=== PATIENT | male | born 1940 | race Caucasian/White ===

== ENCOUNTER 2017-05-10 08:18 | Emergency (ER) | payer MEDICARE ==
[2017-05-10] MEDS ORDERED: Iopamidol 370 76% 100 ML VIAL ONE (09:00)
[2017-05-10 09:05] LABS: Mean Corpuscular HGB CONC 33.2 g/dL (32.0-36.0); Mean Corpuscular Hemoglobin 31.8 pg (27.0-31.0); Mean Corpuscular Volume 95.9 fl (80.0-94.0); Mean Platelet Volume 6.8 fL (7.4-10.4); Platelet Count 205 thou/uL (130-400); RBC Distribution Width 19.1 % (11.5-14.5); Red Blood Cell (RBC) Count 3.46 mill/uL (4.70-6.10); White Blood Cell (WBC) Count 5.9 thou/uL (4.8-10.8)
[2017-05-10 09:11] LABS: ALT (SGPT) 19 U/L (8-55); AST (SGOT) 22 U/L (5-34); Albumin 3.5 g/dL (3.4-4.8); Alkaline Phosphatase 67 U/L (40-150); Anion Gap 12 mmol/L (10-20); BUN (Urea Nitrogen) 17 mg/dL (8.4-25.7); Bilirubin, Total 1.2 mg/dL (0.2-1.2); Calc. Creatinine Clearance 0 mL/min (70-130); Calcium 9.1 mg/dL (7.8-10.44); Carbon Dioxide 28 mmol/L (23-31); Chloride 105 mmol/L (98-107); Estimated GFR-MDRD Greater than 90; Globulin 2.7 g/dL (2.4-3.5); Glucose 127 mg/dL (83-110); Potassium 4.3 mmol/L (3.5-5.1); Protein, Total 6.2 g/dL (5.8-8.1); Sodium 141 mmol/L (136-145)
[2017-05-10 09:13] LABS: Troponin I 0.029 ng/mL (< 0.028)
--- NOTE | 2017-05-10 09:14 | RAD ---
FRONTAL VIEW CHEST: CLINICAL HISTORY: Dyspnea. COMPARISON: 03/07/2014 FINDINGS: There is evidence of edema with an enlarged cardiomediastinal silhouette and prominent pulmonary vasc ulature. No discrete pneumothorax. There is slight blunting of the right lateral costophrenic sulcu s, indicating mild right pleural fluid. IMPRESSION: Findings most likely related to decompensated congestive heart failure. Superimposed pneumonitis is not excluded. Consider imaging followup to confirm resolution. POS: [facility]
[2017-05-10 09:26] LABS: #Basophils 0.1 thou/uL (0.0-0.2); #Eosinphils 0.1 thou/uL (0.0-0.7); #Lymphocytes 1.4 thou/uL (1.20-3.40); #Monocytes 0.5 thou/uL (0.11-0.59); #Neutrophils 3.8 thou/uL (1.40-6.50); %Basophils 1.9 % (0.0-1.0); %Eosinophils 1.6 % (0.0-10.0); %Lymphocytes 23.8 % (21.0-51.0); %Monocytes 8.7 % (0.0-10.0); %Neutrophils 63.9 % (42.0-75.0); Anisocytosis SLIGHT = 6-15 cells (100X) (0-5/hpf); MDiff Complete? YES; Macrocytosis SLIGHT = 6-15 cells (100X) (0-5/hpf); Ovalocytes SLIGHT = 2-5 cells (100X) (0-1/hpf); PLT Morphology Comment Appears Adequate
[2017-05-10] MEDS ORDERED: Furosemide 40 MG/4 ML VIAL ONE (10:04)
--- NOTE | 2017-05-10 10:23 | CT ---
CT ANGIO CHEST WITH CONTRAST: HISTORY: Dyspnea. COMPARISON: None. TECHNIQUE: CT angiogram chest was performed with the intravenous administration of contrast, and 3D rendering wa s provided. FINDINGS: The pulmonary trunk is dilated, measuring 38 mm. The are no proximal segmental pulmonary arterial fi lling defects. The thoracic aorta is nonaneurysmal. Moderate-sized bilateral layering pleural effusions. Moderate septal thickening and mild centrilobular ground glass opacities. There is a peripheral tria ngular-shaped opacity within the anterior basal right lower lobe. This may reflect an underlying sma ll area of consolidation. Multiple old rib fractures. IMPRESSION: 1. No segmental pulmonary arterial filling defect. 2. Moderate sized layering effusions and moderate congestive heart failure with edema. 3. Multiple rib fractures with an area of pleural thickening and round atelectasis in the right lowe r lobe, peripheral aspect, anterior basal right lower lobe. 4. Dilated main pulmonary artery, suggesting pulmonary artery hypertension. 5. Large cyst over what is suspected to be the superior pole right kidney, incompletely evaluated. POS: [facility]
--- NOTE | 2017-06-17 15:48 | EKG ---
Test Reason : Blood Pressure : / mmHG Vent. Rate : 079 BPM Atrial Rate : 079 BPM P-R Int : 202 ms QRS Dur : 160 ms QT Int : 440 ms P-R-T Axes : 027 -22 097 degrees QTc Int : 504 ms Normal sinus rhythm Left bundle branch block Abnormal ECG Confirmed by ALBERTO ARAUJO D.O. ([id number]), online editor PATRICIA GAO ([id number]) on 06/17/2017 3:47:56 PM Referred By: Confirmed By:ALBERTO ARAUJO D.O.
== END 2017-05-10 15:07 | disposition home or self-care (01) ==
LOC: SCSER 08:18
DX: I11.0 Hypertensive heart disease with heart failure (principal); I50.9 Heart failure, unspecified; E11.9 Type 2 diabetes mellitus without complications; E78.5 Hyperlipidemia, unspecified; Z87.891 Personal history of nicotine dependence; Z79.84 Long term (current) use of oral hypoglycemic drugs; Z79.82 Long term (current) use of aspirin; Z79.899 Other long term (current) drug therapy
CPT/HCPCS: 71045; 71275; 80053; 82553; 83880; 84484; 85025; 85379; 93005; 96374; J1940

== ENCOUNTER 2018-06-28 15:50 | Inpatient (IN) | payer MEDICARE, OTHER ==
[2018-06-28 16:53] LABS: Bilirubin Small (Negative); Blood, Urine Negative (Negative); Clarity Clear (Clear); Glucose, Urine (Dipstick) Negative (Negative); Leukocyte Negative (Negative); Nitrite Negative (Negative); Protein, Urine (Dipstick) Negative (Neg-Trace); pH, Urine 5.5 (5.0-9.0)
[2018-06-28 17:02] LABS: ALT (SGPT) 114 U/L (8-55); AST (SGOT) 81 U/L (5-34); Albumin 3.3 g/dL (3.4-4.8); Alkaline Phosphatase 215 U/L (40-150); Anion Gap 11 mmol/L (10-20); BUN (Urea Nitrogen) 35 mg/dL (8.4-25.7); Bilirubin, Total 2.4 mg/dL (0.2-1.2); Calc. Creatinine Clearance 0 mL/min (70-130); Calcium 9.1 mg/dL (7.8-10.44); Carbon Dioxide 28 mmol/L (23-31); Chloride 98 mmol/L (98-107); Estimated GFR-MDRD 57; Globulin 3.2 g/dL (2.4-3.5); Glucose 127 mg/dL (83-110); Potassium 3.9 mmol/L (3.5-5.1); Protein, Total 6.5 g/dL (5.8-8.1); Sodium 133 mmol/L (136-145)
[2018-06-28 17:02] LABS: Hemoglobin 10.6 g/dL (14.0-18.0); Mean Corpuscular HGB CONC 31.7 g/dL (32.0-36.0); Mean Corpuscular Hemoglobin 28.9 pg (27.0-31.0); Mean Corpuscular Volume 91.3 fL (78.0-98.0); Mean Platelet Volume 6.8 fL (7.4-10.4); Platelet Count 182 thou/uL (130-400); RBC Distribution Width 19.5 % (11.5-14.5); Red Blood Cell (RBC) Count 3.66 mill/uL (4.70-6.10)
[2018-06-28 17:11] LABS: Anisocytosis SLIGHT = 6-15 cells (100X) (0-5/hpf); Band 3 % (5-11); Eosinophils 1 % (0-10); Hypochromia SLIGHT = 6-15 cells (100X) (0-5/hpf); Lymphocytes 14 % (21-51); MDiff Complete? YES; Microcytosis SLIGHT = 6-15 cells (100X) (0-5/hpf); Monocytes 11 % (0-10); Neutrophil 70 % (42-75); Ovalocytes SLIGHT = 2-5 cells (100X) (0-1/hpf); Platelet Morphology Comment Appears Adequate; Polychromasia SLIGHT = 2-3 cells (100X) (0-2/hpf)
--- NOTE | 2018-06-28 17:13 | RAD ---
2 VIEW CHEST: Date: 06/28/18 COMPARISON: 10/04/16. INDICATION: Fever. FINDINGS: There is focal patchy density at the left lower lung zone. Right lung is grossly clear. Cardiac silho uette is enlarged. There is osseous degenerative change. There is a mild degree of chest wall irregul arity inferolaterally on the right which may be related to sequelae from remote trauma and callus for mation of lateral lower right rib. IMPRESSION: 1. Mild focal patchy density at the left lower lung zone. This could relate to superimposition of hi lar vasculature or alternatively a small focus of pneumonia or edema. 2. Enlarged cardiac silhouette. POS: [facility]
[2018-06-28] MEDS ORDERED: Sodium Chloride 0.9% 100 ML ONE (17:14)
[2018-06-28] MEDS ORDERED: cefTRIAXone\\ROCEPHIN 1 GM VIAL ONE (17:14)
[2018-06-28] MEDS ORDERED: Azithromycin 500 MG VIAL ONE (17:45)
[2018-06-28] MEDS ORDERED: Aspirin Chewable 81 MG TAB ONE (17:45)
[2018-06-28] MEDS ORDERED: Sodium Chloride 0.9% 1,000 ML IV SCH (19:25)
[2018-06-28 20:13] VITALS: BMI 34.7
[2018-06-28 20:24] LABS: CKMB 2.7 ng/mL (0-6.6)
[2018-06-28] MEDS ORDERED: HumaLOG 300 UNITS/3 ML VIAL SC PRN (20:54)
[2018-06-28] MEDS ORDERED: HYDROcodone/Acetaminophen 5/325 mg Tablet PO PRN (20:54)
[2018-06-28] MEDS ORDERED: hydrALAZINE 20 MG/ML VIAL SLOW IVP PRN (20:54)
[2018-06-28] MEDS ORDERED: Ondansetron ODT 4 MG TAB PO PRN (20:54)
[2018-06-28] MEDS ORDERED: Acetaminophen 325 MG TAB PO PRN (20:54)
[2018-06-28] MEDS ORDERED: Dextrose 5% in Water 1,000 ML IV PRN (20:54)
[2018-06-28] MEDS ORDERED: Dextrose 50% Abboject 50 ML SYRINGE SLOW IVP PRN (20:54)
[2018-06-28] MEDS ORDERED: INSULIN GLARGINE HUM REC ANLOG 24 UNIT SC SCH (21:00)
[2018-06-28] MEDS ORDERED: cefTRIAXone\\ROCEPHIN 1 GM in Sodium Chloride 0.9% 100 ML IVPB SCH (21:00)
[2018-06-28] MEDS: Heparin 5,000 UNITS/ML VIAL SC SCH (21:55)
[2018-06-28] MEDS: INSULIN GLARGINE SC SCH (21:55)
[2018-06-28] MEDS: Oseltamivir 75 MG CAP PO SCH (22:01)
[2018-06-28] MEDS: Nicotine 14 MG PATCH TD SCH (22:01)
--- NOTE | 2018-06-28 22:07 | HP ---
PRIMARY CARE PHYSICIAN: Dr. Castillo. CHIEF COMPLAINT: Shortness of breath and not feeling well. HISTORY OF PRESENT ILLNESS: This is a 77-year-old male with past medical history of CHF, diabetes, hypertension, and coronary artery disease, who presents to the emergency department with complaints of flu-like symptoms and nausea. The patient reports that he was seen by his PCP 3 to 4 days ago and he thinks that the patient had a flu test and was started on Tamiflu. The patient has taken 3-1/2-day course so far. The patient reports that he was still not feeling well and that is why he came to the ER. 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 The patient has history of coronary artery disease, stents. The patient thinks that he has history of CHF, but he is not sure what type. The patient follows up with his supervisor tank storage regularly and he is taking a water pill. The patient during my interview denied any chest pain, shortness of breath at this point. Denies any swelling of his lower extremities. The patient also reports compliant with his medication, but he is currently unsure of what exact medication that he is taking right now. ALLERGIES: NO KNOWN DRUG ALLERGIES. CURRENT MEDICATIONS: 1. Valsartan. 2. Metformin. 3. Lisinopril. 4. Insulin. 5. Atorvastatin. 6. Aspirin. 7. Hydrochlorothiazide. 8. Lasix. PAST MEDICAL HISTORY: 1. Diabetes. 2. Hypertension. 3. Coronary artery disease. 4. CHF, unknown type or cause. PAST SURGICAL HISTORY: 1. Coronary artery stents. 2. Hernia repair. 3. Bilateral ear surgery. 4. Cleft palate repair. FAMILY HISTORY: Significant for mother having heart problems and father of cancer. SOCIAL HISTORY: The patient is a current smoker and last smoked 4 days ago. The patient denies any alcohol or any other illicit drug use. REVIEW OF SYSTEMS: 10-point review of system is negative other than mentioned in the history of present illness. PHYSICAL EXAMINATION: VITAL SIGNS: The patient's blood pressure 100/44, pulse 66, respiration rate 20 , O2 saturation 95% on room air, temperature 98.5. CONSTITUTIONAL: In general, the patient is alert and does not seem to be in acute distress. HEENT: Head, atraumatic. Ears and nose, no drainage or bleeding noted. Throat , no exudate noted. NECK: No lymphadenopathy noted. CARDIOVASCULAR: Regular rate and rhythm. No murmur, rubs, or gallops. PULMONARY: Clear bilaterally. No wheezes or rales noted. ABDOMEN: Soft, nontender. Bowel sounds positive. EXTREMITIES: No edema noted. NEUROLOGICAL: The patient is alert. Eyes examination; extraocular movement intact. SKIN: No rashes noted. DIAGNOSTIC DATA: Reviewed the EKG, a left bundle-branch block, but no ST- segment elevation noted. Chest x-ray is concerning for mild focal patchy densities at lower left lung, this could relate to superimposition of hilar vasculature, alternatively a small focus of pneumonia or edema, enlarged cardiac silhouette. LABORATORY DATA: Sodium 133, potassium 3.9, chloride 98, carbon dioxide 28, BUN 35, creatinine 1.23, glucose 127. Lactic acid 1.2. Bilirubin 2.4, AST 81, ALT 114, alkaline phosphatase 215. Troponin 0.034. BNP 142. Hemoglobin 10.6, white blood cell count 6, hematocrit 33, and platelets 182. Urine negative for ketones, leukocyte esterase, and nitrites. ASSESSMENT AND PLAN: 1. Suspected left lower lung pneumonia. Chest x-ray concerning for possible pneumonia. The patient was given ceftriaxone and azithromycin in the ER. We will continue both antibiotics. The patient is breathing well on room air. Oxygen p.r.n. Nebulizer p.r.n. CT of the chest without contrast ordered. 2. Low normal blood pressure. The patient's blood pressure in the ER was noted to be in 90s/40s. The patient was given normal saline bolus 250 cc and was started on IV fluids. The patient is asymptomatic and blood pressure is again in low normal. We will hold off the patient's home blood pressure medication. At this point, we will avoid any more fluid, given history of heart failure. 3. Congestive heart failure. The patient does not appear to be in acute exacerbation. Indeterminant trops on admission. The patient was given some IV fluids in the ER. We will DC IV fluids at this point. We will continue home Lasix once it has been verified. CHF, type unknown. The patient follows up with his supervisor tank storage. 4. Hyperbilirubinemia. Bilirubin at 2.4. We will trend at this point. 5. Transaminitis, likely due to suspected pneumonia. We will trend at this point. 6. Hyponatremia, mild, likely from Lasix. We will repeat labs in the morning. 7. Diabetes. We will hold metformin during admission. We will add sliding scale insulin. 8. Coronary artery disease. We will continue home medication. The patient has history of stents. 9. Code status; the patient is DNR per my discussion with him. RN was there to witness. Form completed. 10. DVT prophylaxis addressed. 11. Medical power of traffic law attorney, the patient would like his to make decisions for him if he is not able to. Job ID: [id number] MTDD
[2018-06-29] MEDS ORDERED: cefTRIAXone\\ROCEPHIN 1 GM in Sodium Chloride 0.9% 100 ML IVPB SCH ×2 (05:00→15:00)
[2018-06-29 05:25] LABS: #Eosinphils 0.1 thou/uL (0.0-0.7); #Lymphocytes 1.2 thou/uL (1.20-3.40); #Monocytes 0.5 thou/uL (0.11-0.59); #Neutrophils 2.2 thou/uL (1.40-6.50); %Basophils 0.5 % (0.0-1.0); %Eosinophils 2.1 % (0.0-10.0); %Lymphocytes 29.7 % (21.0-51.0); %Monocytes 13.4 % (0.0-10.0); %Neutrophils 54.4 % (42.0-75.0); Hemoglobin 9.8 g/dL (14.0-18.0); Mean Corpuscular HGB CONC 32.2 g/dL (32.0-36.0); Mean Corpuscular Hemoglobin 30.5 pg (27.0-31.0); Mean Corpuscular Volume 94.7 fL (78.0-98.0); Mean Platelet Volume 8.4 fL (7.4-10.4); Platelet Count 177 thou/uL (130-400); RBC Distribution Width 18.9 % (11.5-14.5)
[2018-06-29 05:46] LABS: ALT (SGPT) 84 U/L (8-55); AST (SGOT) 60 U/L (5-34); Albumin 2.8 g/dL (3.4-4.8); Alkaline Phosphatase 196 U/L (40-150); Anion Gap 12 mmol/L (10-20); BUN (Urea Nitrogen) 33 mg/dL (8.4-25.7); Bilirubin, Direct 1.1 mg/dL (0.1-0.3); Bilirubin, Total 1.6 mg/dL (0.2-1.2); Calc. Creatinine Clearance 95 mL/min (70-130); Calcium 8.7 mg/dL (7.8-10.44); Carbon Dioxide 25 mmol/L (23-31); Chloride 102 mmol/L (98-107); Estimated GFR-MDRD 69; Glucose 116 mg/dL (83-110); Potassium 3.7 mmol/L (3.5-5.1); Protein, Total 5.5 g/dL (5.8-8.1); Sodium 135 mmol/L (136-145)
[2018-06-29] MEDS: INSULIN GLARGINE SC SCH ×2 (09:00→21:02)
[2018-06-29] MEDS ORDERED: Azithromycin 250 MG TAB PO SCH (09:00)
--- NOTE | 2018-06-29 09:54 | CT ---
CT OF THE CHEST WITHOUT CONTRAST: Date: 06/29/18 COMPARISON: Chest x-ray dated 06/28/18. HISTORY: Pneumonia and fever. TECHNIQUE: Multiple contiguous axial images were obtained in a CT of the chest without contrast. Coronal reforma ts were performed. FINDINGS: There is a calcified granuloma in the right upper lobe. There are calcified right hilar and mediastin al lymph nodes. No suspicious pulmonary nodules are seen. No focal infiltrates are seen in the lungs. No pneumothorax or pleural effusions seen. The heart is upper limits of normal in size. Calcifications are seen in the coronary arteries and aor ta. No hilar or mediastinal lymphadenopathy are appreciated on this limited noncontrast examination. There is a gallstone in the gallbladder. A 6.3 cm cyst is seen in the right kidney. The other visuali zed subdiaphragmatic structures are unremarkable. Degenerative changes are seen in the spine. The visualized chest wall soft tissues are unremarkable. IMPRESSION: 1. No evidence of acute intrathoracic abnormality. 2. Cholelithiasis. 3. Right renal cyst. POS: [facility]
[2018-06-29] MEDS: Loratadine 10 MG TAB PO SCH (09:58)
[2018-06-29] MEDS: Furosemide 20 MG TAB PO SCH ×2 (09:58→16:16)
[2018-06-29] MEDS: Escitalopram Oxalate 10 mg Tablet PO SCH (09:58)
[2018-06-29] MEDS: Heparin 5,000 UNITS/ML VIAL SC SCH ×3 (09:59→21:22)
[2018-06-29] MEDS: Oseltamivir 75 MG CAP PO SCH (13:49)
[2018-06-29] MEDS: Mag-Al 1200 mg/1200 mg/30 ML UDCUP PO SCH ×2 (16:12)
[2018-06-29 17:32] LABS: #Basophils 0.1 thou/uL (0.0-0.2); #Lymphocytes 0.9 thou/uL (1.20-3.40); #Monocytes 0.4 thou/uL (0.11-0.59); #Neutrophils 3.2 thou/uL (1.40-6.50); %Basophils 1.4 % (0.0-1.0); %Eosinophils 0.8 % (0.0-10.0); %Lymphocytes 19.3 % (21.0-51.0); %Monocytes 9.6 % (0.0-10.0); Hemoglobin 10.1 g/dL (14.0-18.0); Mean Corpuscular HGB CONC 32.4 g/dL (32.0-36.0); Mean Corpuscular Hemoglobin 30.4 pg (27.0-31.0); Mean Corpuscular Volume 93.6 fL (78.0-98.0); Mean Platelet Volume 8.2 fL (7.4-10.4); Platelet Count 188 thou/uL (130-400); RBC Distribution Width 19.1 % (11.5-14.5); Red Blood Cell (RBC) Count 3.32 mill/uL (4.70-6.10); White Blood Cell (WBC) Count 4.6 thou/uL (4.8-10.8)
[2018-06-29 18:07] LABS: ALT (SGPT) 129 U/L (8-55); ALT (SGPT) 131 U/L (8-55); AST (SGOT) 151 U/L (5-34); AST (SGOT) 152 U/L (5-34); Alkaline Phosphatase 358 U/L (40-150); Alkaline Phosphatase 359 U/L (40-150); Anion Gap 13 mmol/L (10-20); BUN (Urea Nitrogen) 24 mg/dL (8.4-25.7); Bilirubin, Direct 2.6 mg/dL (0.1-0.3); Bilirubin, Total 3.5 mg/dL (0.2-1.2); Calc. Creatinine Clearance 92 mL/min (70-130); Calcium 8.9 mg/dL (7.8-10.44); Carbon Dioxide 26 mmol/L (23-31); Chloride 99 mmol/L (98-107); Estimated GFR-MDRD 67; Glucose 141 mg/dL (83-110); Lipase Greater than 1000 U/L (8-78); Potassium 3.6 mmol/L (3.5-5.1); Sodium 134 mmol/L (136-145)
[2018-06-29 18:16] LABS: HBCM Index 0.05 S/CO (0-0.79); HBSAg Index 0.71 S/CO (0-0.99); Hep A IgM AB Non-Reactive (NonReactive); Hep B Surf Ag Non-Reactive S/CO (NonReactive); Hep C IgG Ab Non-Reactive (NonReactive); Hep C Index 0.22 S/CO (0-0.79); Hepatitis B Core IgM Abs Non-Reactive (NonReactive)
[2018-06-29] MEDS ORDERED: Polyethylene Glycol 3350 17 GM Packet PO SCH (18:22)
[2018-06-29] MEDS ORDERED: Morphine 4 MG/ML VIAL SLOW IVP PRN (18:27)
[2018-06-29] MEDS ORDERED: Piperacillin/Tazobactam 3.375 GM in Sodium Chloride 0.9% 100 ML IVPB SCH (18:45)
--- NOTE | 2018-06-29 18:55 | PDOC.PN ---
- Subjective Encounter Start Date: 06/29/18 Encounter Start Time: 12:53 Subjective: Patient with abdominal discomfort has noted increased -: abdominal girth. Denies any n/v. Has not had a bowel movement -: in several days but has been tolerating oral intake and passing flatus. Suffers from constipation at baseline. Denies issues with his liver in the past or having any issues with ascites in the past. No known history of hepatitis. Has not had any fevers overnight. No urinary symptoms. Denies any chest pain, palpitations or sob. No headaches or dizziness. No itching of his skin. - Objective Resuscitation Status - Order Detail: 06/28/18 20:23 Resuscitation Status Routine Resuscitation Status: DNAR: NO Resuscitation Discussed with: Patient who reported DNR request Vital Signs & Weight: Vital Signs (12 hours) Temp Pulse Pulse Pulse Resp BP BP 06/29/18 15:10 100.9 F H 71 22 H 06/29/18 13:45 72 113/58 L 06/29/18 13:24 72 75 113/58 L 112/56 L 06/29/18 11:00 98.9 F 71 20 06/29/18 07:47 97.7 F 67 16 BP Pulse Ox Pulse Ox Pulse Ox 06/29/18 15:10 103/55 L 92 L 06/29/18 13:45 06/29/18 13:24 91 L 91 L 06/29/18 11:00 109/56 L 97 06/29/18 07:47 110/57 L 96 Weight Weight 256 lb 9.6 oz Result Diagrams: 06/29/18 17:14 06/29/18 17:14 Additional Labs: Accuchecks 06/29/18 06/29/18 06/28/18 16:39 11:05 20:36 POC Glucose 126 H 133 H 138 H Phys Exam - Physical Examination Constitutional: NAD HEENT: PERRLA, sclera anicteric, oral pharynx no lesions Neck: full ROM Respiratory: no wheezing, clear to auscultation bilateral Cardiovascular: RRR Gastrointestinal: soft, positive bowel sounds nontender, but distended, no guarding/rigidity Musculoskeletal: no edema, pulses present Neurological: normal sensation, moves all 4 limbs Psychiatric: normal affect, A&O x 3 Skin: no rash Deviation from normal: No jaundice Dx/Plan (1) Cholelithiasis Code(s): K80.20 - CALCULUS OF GALLBLADDER W/O CHOLECYSTITIS W/O OBSTRUCTION Status: Acute (2) LFTs abnormal Code(s): R94.5 - ABNORMAL RESULTS OF LIVER FUNCTION STUDIES Status: Acute (3) Hyperbilirubinemia Code(s): E80.6 - OTHER DISORDERS OF BILIRUBIN METABOLISM Status: Acute (4) Constipation Code(s): K59.00 - CONSTIPATION, UNSPECIFIED Status: Acute (5) Abdominal distention Code(s): R14.0 - ABDOMINAL DISTENSION (GASEOUS) Status: Acute - Plan Patient admitted with CAP. No evidence of pneumonia on CT Chest. -: IV abx discontinued. Patient with cholelithiasis noted. -: Slightly improved LFTs today, however with increased abdo distention/pain -: Will check lipase and repeat LFTs as well as t.bili/direct bili. Abdo US. -: Hepatitis Panel requested. Miralax PO for constipation. Hx of cardiomyopathy. Echo requested. Discussed with Dr. Encarnacion who agrees with plan above. ADDENDUM: Patient with increased pain and fever. LFTs significantly elevated with lipase >1000. Repeat Blood cultures requested. IV Abx started (Zosyn and Vanc). GI Consult requested. IV morphine for pain. Strict NPO. Slow IV hydration. Discussed with Dr. Currie who has recommended MRCP instead of CT Abdo. Cardiology consult requested for pre-op eval, in the event he needs to have cholecystectomy, as per Dr. Encarnacion.
[2018-06-29] MEDS ORDERED: Sodium Chloride 0.9% 1,000 ML IV SCH ×2 (19:00→20:06)
[2018-06-29] MEDS: Sodium Chloride 0.9% 1,000 ML IV SCH (21:02)
[2018-06-29] MEDS: Nicotine 14 MG PATCH TD SCH (21:03)
[2018-06-29] MEDS: Vancomycin HCl 1.5 GM in Sodium Chloride 0.9% 250 ML 300 ML IVPB SCH (21:09)
--- NOTE | 2018-06-29 21:10 | CON ---
DATE OF CONSULTATION: 06/29/2018 REASON FOR CONSULTATION: Elevated LFTs, possible choledocholithiasis. CONSULTING PHYSICIAN: Dr. Lorenzo Encarnacion. HISTORY OF PRESENT ILLNESS: The patient is a 77-year-old male with past medical history of congestive heart failure, diabetes, hypertension, and coronary artery disease, who initially presented to the hospital with fevers, chills, nausea, and per chart review, flu-like symptoms. Per chart review, the patient had been seen by his PCP approximately 3 to 4 days ago and had a flu test and started on Tamiflu with no relief in symptoms. However, over the next few days, he had increasing fevers and chills. There was also associated with increased right midabdominal pain that he states has also been present for the last 4 to 5 days. This pain was nonradiating, was stabbing/throbbing in character, intermittent, and would reach a severity of 10/10. There were no clear alleviating factors, but the patient did endorse increased pain with pressure to the region and that the pain would last for anywhere between 6 to 24 hours. Associated symptoms included subjective fevers, chills, nausea without vomiting, then increased constipation. He states that his last bowel movement was approximately 1 week ago and was solid in consistency with increased straining in order to facilitate defecation. Of note, the patient endorsed a similar pain in the past, that was alleviated with having a bowel movement/passing flatus. Currently, he denies any actual vomiting, dysphagia, odynophagia, GI bleeding, diarrhea, or jaundice. REVIEW OF SYSTEMS: A 10-category review of systems was obtained with all responses negative except for the pertinent positives as listed in the HPI. PAST MEDICAL HISTORY: As per HPI. PAST SURGICAL HISTORY: 1. Coronary artery stent placement. 2. Hernia repair. 3. Bilateral ear surgery. 4. Cleft palate repair. FAMILY HISTORY: Denies any GI malignancies. SOCIAL HISTORY: Denies any alcohol or illicit drug use, but is a current smoker. OUTPATIENT MEDICATIONS: Reviewed. ALLERGIES: NO KNOWN DRUG ALLERGIES. PHYSICAL EXAMINATION: VITAL SIGNS: Temperature 98.8, but a T-max of 100.9; pulse 79, blood pressure 99/54, respiratory rate 16, and saturating 92% on room air. GENERAL: The patient was lying in bed, in no acute distress. Alert and oriented x4. HEENT: Normocephalic and atraumatic. NECK: Supple. No scleral icterus or JVD noted. CARDIOVASCULAR: Regular rate and rhythm with no discernible murmurs, gallops, or rubs. RESPIRATORY: Clear to auscultation bilaterally in the upper lung st[place], but did hear some mild inspiratory wheezing in the lower lung st[place]. ABDOMEN: Normoactive bowel sounds. Soft and nondistended. Tenderness to palpation in the midepigastric, right upper quadrant, and right mid abdomen. EXTREMITIES: No cyanosis, clubbing, or edema. LABORATORY DATA: CBC with a white blood cell count of 4.6, hemoglobin 10.1, hematocrit 31.1, and platelets 188. Chemistry with a sodium of 134, potassium 3.6, chloride 99, CO2 of 26, BUN 24, creatinine 1.07, and glucose 141. AST 151, ALT 131, alkaline phosphatase 358, total bilirubin 3.5, lipase greater than 1000. Acute hepatitis profile negative. IMAGING DATA: CT of the chest obtained on 06/29/2018 showed no evidence of acute intrathoracic abnormality, although did show a calcified granuloma within the right upper lobe and calcified right hilar mediastinal lymph nodes. The gallbladder was seen with cholelithiasis, but no other comment was made on the gallbladder. ASSESSMENT AND PLAN: The patient is a 77-year-old male with past medical history of congestive heart failure, diabetes, hypertension, and coronary artery disease, presenting with elevated liver function tests and cholelithiasis, concerning for gallstone pancreatitis. Possible gallstone pancreatitis. The patient is presenting with a recent history of increased right midabdominal pain that has been present for the last 4 to 5 days and characterizes a stabbing/throbbing type pain that is nonradiating, it is intermittent and would reach a severity of 10/10. Upon evaluation of the CT chest, there is evidence of cholelithiasis, but the imaging study does not reach low enough to further visualize the GI tract, although no comment was made on the pancreas, which was clearly visualized. Per laboratory review, the patient has elevated liver function tests primarily in a cholestatic pattern given the alkaline phosphatase and bilirubin predominance, but with a mild elevation in AST and ALT may be consistent with an obstructive process as well. With a lipase greater than 1000, he certainly does have an element of pancreatitis and should be treated as such, but the causative etiology at this point is unclear. Right now, the differential could include gallstone pancreatitis, hypertriglyceridemia contributing pancreatitis, medication induced (albeit unlikely, but he is taking both an GABRIELLA inhibitor and hydrochlorothiazide, which could contribute) and/or possible gastrointestinal neoplasm. RECOMMENDATIONS: 1. We will obtain an MRCP for further evaluation of the liver, biliary tract, and pancreas for any signs of obstructive pathology. 2. We would continue the patient on broad-spectrum antibiotics including Zosyn for possible ascending cholangitis. 3. We would increase the patient's IV fluid administration to 125 mL/hr given the diagnosis of pancreatitis; however, with his prior history of congestive heart failure, his volume status will need to be closely monitored and I have already ordered a one time dose of Lasix 40 mg IV for the morning to event hypervolemia. 4. I would also obtain a fasting lipid profile for possible hypertriglyceridemia contributing to the current clinical picture. 5. Agree with placing the patient on MiraLAX to facilitate having a bowel movement. 6. We will continue to follow with possible ERCP in the morning if the MRCP is consistent with an obstructive pathology. Please call with any questions. Job ID: [id number]
[2018-06-29] MEDS: Piperacillin/Tazobactam 3.375 GM in Sodium Chloride 0.9% 100 ML IVPB SCH (23:39)
[2018-06-30] MEDS: Piperacillin/Tazobactam 3.375 GM in Sodium Chloride 0.9% 100 ML IVPB SCH ×2 (05:35→14:38)
[2018-06-30] MEDS: Sodium Chloride 0.9% 1,000 ML IV SCH ×2 (05:35→14:53)
[2018-06-30 06:22] LABS: #Eosinphils 0.1 thou/uL (0.0-0.7); #Lymphocytes 1.4 thou/uL (1.20-3.40); #Monocytes 0.5 thou/uL (0.11-0.59); %Eosinophils 1.9 % (0.0-10.0); %Lymphocytes 35.4 % (21.0-51.0); %Neutrophils 49.7 % (42.0-75.0); Hemoglobin 9.1 g/dL (14.0-18.0); Mean Corpuscular HGB CONC 31.8 g/dL (32.0-36.0); Mean Corpuscular Hemoglobin 30.1 pg (27.0-31.0); Mean Corpuscular Volume 94.7 fL (78.0-98.0); Mean Platelet Volume 7.7 fL (7.4-10.4); Platelet Count 172 thou/uL (130-400); RBC Distribution Width 19.1 % (11.5-14.5); Red Blood Cell (RBC) Count 3.03 mill/uL (4.70-6.10)
[2018-06-30 06:35] LABS: ALT (SGPT) 133 U/L (8-55); AST (SGOT) 158 U/L (5-34); Albumin 2.7 g/dL (3.4-4.8); Alkaline Phosphatase 379 U/L (40-150); Anion Gap 9 mmol/L (10-20); BUN (Urea Nitrogen) 20 mg/dL (8.4-25.7); Bilirubin, Total 3.8 mg/dL (0.2-1.2); Calc. Creatinine Clearance 95 mL/min (70-130); Calcium 8.5 mg/dL (7.8-10.44); Carbon Dioxide 30 mmol/L (23-31); Cardiac Risk 11.4 (Less than 4.5); Chloride 103 mmol/L (98-107); Cholesterol 103 mg/dl (< 200 Desired); Estimated GFR-MDRD 69; Globulin 2.8 g/dL (2.4-3.5); Glucose 107 mg/dL (83-110); HDL Cholesterol 9 mg/dL (>60 Neg Risk); LDL Cholesterol, Calculated 65 mg/dL; Potassium 3.7 mmol/L (3.5-5.1); Protein, Total 5.5 g/dL (5.8-8.1); Sodium 138 mmol/L (136-145); Triglycerides 143 mg/dL (Less than 150)
[2018-06-30] MEDS ORDERED: Furosemide 40 MG/4 ML VIAL SLOW IVP SCH (08:00)
[2018-06-30] MEDS: Mag-Al 1200 mg/1200 mg/30 ML UDCUP PO SCH ×3 (08:46→19:25)
[2018-06-30] MEDS: INSULIN GLARGINE SC SCH (08:46)
[2018-06-30] MEDS ORDERED: Aspirin 325 MG TAB PO SCH (09:00)
[2018-06-30] MEDS ORDERED: Polyethylene Glycol 3350 17 GM Packet PO SCH ×2 (09:00→21:00)
[2018-06-30] MEDS: Heparin 5,000 UNITS/ML VIAL SC SCH ×2 (11:07→14:35)
[2018-06-30] MEDS: Vancomycin HCl 1.5 GM in Sodium Chloride 0.9% 250 ML 300 ML IVPB SCH (11:27)
[2018-06-30] MEDS: Furosemide 20 MG TAB PO SCH ×2 (11:59→16:01)
--- NOTE | 2018-06-30 12:04 | PDOC.PN ---
- Subjective Encounter Start Date: 06/30/18 Encounter Start Time: 12:02 Subjective: Patient feeling well and without any complaints. -: Denies any abdominal pain but reports feeling hungry. -: No nausea/vomiting. Has not moved his bowels but reports flatus. No issues overnight. Remains afebrile. - Objective Resuscitation Status - Order Detail: 06/28/18 20:23 Resuscitation Status Routine Resuscitation Status: DNAR: NO Resuscitation Discussed with: Patient who reported DNR request Vital Signs & Weight: Vital Signs (12 hours) Temp Pulse Resp BP Pulse Ox 06/30/18 11:25 98.0 F 56 L 18 105/60 95 06/30/18 07:43 98.2 F 62 18 91/51 L 95 06/30/18 04:00 98.3 F 64 18 102/58 L 94 L Weight Weight 256 lb 11.2 oz I&O: 06/29/18 06/30/18 07/01/18 06:59 06:59 06:59 Intake Total 1465 Output Total 900 Balance 565 Result Diagrams: 06/30/18 06:03 06/30/18 06:03 Additional Labs: Accuchecks 06/30/18 06/30/18 06/29/18 11:21 05:47 20:50 POC Glucose 112 H 111 H 152 H 06/29/18 16:39 POC Glucose 126 H Phys Exam - Physical Examination Constitutional: NAD HEENT: PERRLA, moist MMs, oral pharynx no lesions Neck: no nodes, full ROM Respiratory: no wheezing, clear to auscultation bilateral Cardiovascular: RRR Gastrointestinal: soft, non-tender, positive bowel sounds distended, but not tense Musculoskeletal: no edema, pulses present Neurological: normal sensation, moves all 4 limbs Psychiatric: normal affect, A&O x 3 Skin: no rash, normal turgor Dx/Plan (1) Cholelithiasis Code(s): K80.20 - CALCULUS OF GALLBLADDER W/O CHOLECYSTITIS W/O OBSTRUCTION Status: Acute (2) LFTs abnormal Code(s): R94.5 - ABNORMAL RESULTS OF LIVER FUNCTION STUDIES Status: Acute (3) Hyperbilirubinemia Code(s): E80.6 - OTHER DISORDERS OF BILIRUBIN METABOLISM Status: Acute (4) Constipation Code(s): K59.00 - CONSTIPATION, UNSPECIFIED Status: Acute (5) Abdominal distention Code(s): R14.0 - ABDOMINAL DISTENSION (GASEOUS) Status: Acute - Plan cont current plan of care, continue antibiotics, out of bed/ambulate Patient seen by Dr. Currie. S/p MRI, awaiting results. -: Minimal further increase in LFTs early this morning. -: Pain controlled at present. -: Miralax increased to twice daily. -: Hypotension. Hold home BP meds. Continue to monitor. Continue IVF. S/p Echo awaiting results. Patients case discussed with Dr. Encarnacion who agrees with plan as above.
[2018-06-30] MEDS: Loratadine 10 MG TAB PO SCH (14:34)
[2018-06-30] MEDS: Escitalopram Oxalate 10 mg Tablet PO SCH (14:34)
--- NOTE | 2018-06-30 15:26 | CON ---
DATE OF CONSULTATION: 06/30/2018 REASON FOR CONSULTATION: Preoperative evaluation. HISTORY OF PRESENT ILLNESS: Mr. Hernandez is a pleasant 77-year-old white gentleman, who comes to the hospital for abdominal pain. He was diagnosed with possible gallstone pancreatitis, so he may need to undergo ERCP versus open cholecystectomy, laparoscopic, so Cardiology is consulted. He sees Dr. Morales. He has a history of ischemic cardiomyopathy. His last evaluation was with a nuclear stress test back in November of 2017, at which point, he was found to have a reduced EF at about 36% with global hypokinesis and decreased tracer activity at the apex suggestive of a scar. He has had stents in the past as well. He denies any chest pain, tightness, or pressure. No shortness of breath. PAST MEDICAL HISTORY: 1. Coronary artery disease, which is severe 3-vessel disease just back in 2005. He has diffuse diseased vessels, but received stenting on the left circumflex at that time, in [address] Valente. He has not had a repeat catheterization since. 2. Systolic dysfunction, EF at 35% in the last echo. 3. Type 2 diabetes. 4. Hypertension. 5. Coronary artery disease. PAST SURGICAL HISTORY: 1. Stent placement as above. 2. Hernia repair. 3. Bilateral ear surgery. 4. Cleft palate repair. FAMILY HISTORY: No early coronary artery disease. SOCIAL HISTORY: No alcohol or drugs. Continues to smoke. OUTPATIENT MEDICATIONS: 1. Metformin 500 mg b.i.d. 2. Spironolactone 50 mg a day. 3. Entresto 49/51 b.i.d. 4. Lantus. 5. Furosemide 10 mg a day. 6. Joyce p.r.n. 7. Lexapro. 8. Carvedilol 6.25 b.i.d. 9. Atorvastatin 80 mg at bedtime. 10. Aspirin 325 a day. ALLERGIES: NO KNOWN DRUG ALLERGIES. REVIEW OF SYSTEMS: A 12-point review of systems was done and was found to be negative unless stated in the history. PHYSICAL EXAMINATION: VITAL SIGNS: Temperature 98.0, pulse 56, respiratory rate 18, saturating 95% on room air, and blood pressure 105/60. GENERAL: Awake, alert, and oriented x3. No distress. HEENT: Normocephalic and atraumatic. NECK: Supple. LUNGS: Clear. CARDIOVASCULAR: S1 and S2. No S3 or S4. No murmurs. ABDOMEN: Soft. Positive bowel sounds. EXTREMITIES: No edema. SKIN: Warm and dry. LABORATORY DATA: Laboratory work was reviewed. CBC, chemistries, UA, and serologies were all reviewed. EKG was reviewed. CT of the chest was reviewed. Echocardiogram showed an EF of 20% to 25% with grade 1 to 3 diastolic dysfunction. ASSESSMENT: 1. Preoperative evaluation. 2. History of coronary artery disease, diffuse. 3. Ischemic cardiomyopathy, ejection fraction at 20% to 25% on echo today. 4. Ongoing tobacco use. PLAN: 1. He is high risk for an intermediate risk procedure. He is certainly not prohibitive risk. He may undergo said procedure with understood risk caveats. Currently, he is asymptomatic from the coronary standpoint and he is not in any heart failure. 2. Judicious use of fluids postoperatively. 3. We will follow. Job ID: [id number]
[2018-06-30 16:55] VITALS: BP 111/57; TEMP 97.7
--- NOTE | 2018-06-30 17:16 | MRI ---
MRI ABDOMEN WITHOUT CONTRAST 06/30/18 HISTORY: Choledocholithiasis. COMPARISON: CT chest prior day. FINDINGS: No pleural effusions. There is cholelithiasis. There is a 4 mm stone within the distal common bile du ct 2 cm from the ampulla proximal to the insertion of the pancreatic duct. No significant intrahepati c biliary dilatation. The common bile duct itself measures approximately 1 cm. There is cholelithiasi s. Mild wall thickening of the gallbladder. There is some trace pericholecystic fluid. Numerous right sided renal cysts. In the pancreatic tail, there is a cystic mass measuring up to 2.8 cm in size. Multiple smaller cystic masses are present which do have a connection with the main pancr eatic duct. Largest measuring 1.9 cm in size in the dorsal pancreatic body. Spleen mildly enlarged. A drenal glands are unremarkable. Small hepatic periportal cysts are present. No dilated loops of bowel in the upper abdomen. The background marrow signal is unremarkable. IMPRESSION: 1. Choledocholithiasis with a 4-5 mm calculus distal common bile duct approximately 2 cm from th e ampulla. Mild extrahepatic biliary dilatation. 2. Cholelithiasis with mild gallbladder wall thickening. 3. 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 A followup pancreatic protocol MRI with and without contrast in six months to a year is recommended. This appears increased in size from the 2015 CT examination slightly. 4. Smaller masses of the pancreatic tail with abutment and connection of the main pancreatic carlyn t. 5. Right sided large renal cysts. Code T POS: [facility]
[2018-06-30] MEDS ORDERED: Sodium Chloride 0.9% 1,000 ML IV SCH (17:45)
--- NOTE | 2018-06-30 19:47 | PRG ---
DATE OF SERVICE: 06/30/2018 REASON FOR CONSULTATION: Elevated LFTs, possible choledocholithiasis. SUBJECTIVE: The patient states that he had complete resolution of his abdominal pain since last night with no other acute events or problems within the last 24 hours. Currently, he denies any nausea, vomiting, fevers, chills, abdominal pain, dysphagia, odynophagia, or jaundice. At the time of this interview, the patient was wishing to leave the hospital. I explained that the MRI findings were still pending and that leaving the hospital, he would have to go against medical advice, do which he understood. OBJECTIVE: VITAL SIGNS: Temperature 97.7, pulse 58, blood pressure 111/57, respiratory rate 18, and saturating 95% on room air. GENERAL: The patient was sitting at bedside, in no acute distress. Alert and oriented x4. CARDIOVASCULAR: Regular rate and rhythm. RESPIRATORY: Clear to auscultation bilaterally. ABDOMEN: Normoactive bowel sounds. Soft, nontender, and nondistended. EXTREMITIES: No cyanosis, clubbing, or edema. LABORATORY DATA: CBC with a white blood cell count of 4, hemoglobin 9.1, hematocrit 28.7, platelets 172. Chemistry with a sodium of 138, potassium 3.7, chloride 103, CO2 of 30, BUN 20, creatinine 1.04, glucose 107. AST 158, ALT 133, alkaline phosphatase 379, and total bilirubin 3.8. IMAGING DATA: MRCP obtained on June 30, 2018, showed the presence of cholelithiasis as well as the presence of 4 mm stone within the distal common bile duct approximately 2 cm from the ampulla and proximal to the insertion of the pancreatic duct. There was no significant intrahepatic biliary dilatation with the common bile duct measuring approximately 1 cm in diameter. There was mild wall thickening of the gallbladder as well as some trace pericholecystic fluid. In the pancreatic tail, there was a cystic mass measuring up to 2.8 cm in size. Multiple smaller cystic masses were present, which do have a connection with the main pancreatic duct. The largest of which measuring 1.9 cm along the dorsal pancreatic body. When compared to imaging obtained in 2014, these pancreatic cysts appeared to be increasing in size. ASSESSMENT AND PLAN: The patient is a 77-year-old male with past medical history of congestive heart failure, diabetes, hypertension, and coronary artery disease, presenting with elevated liver function tests and elevated lipase consistent with gallstone pancreatitis. Gallstone pancreatitis. The patient initially presented with a history of increased right mid abdominal pain that had been present for the last 4 to 5 days prior to admission. On admission, he was noted to have significantly elevated LFTs in addition to a lipase that was greater than 1000. MRCP obtained on June 30, 2018, showed the presence of cholelithiasis as well as a 4 mm stone within the distal common bile duct, most likely presenting to pancreatitis and consistent with a diagnosis of gallstone pancreatitis. However, the patient was wishing to leave AMA from the hospital and at the time of this dictation, had already departed from the hospital. I attempted to call the patient on the number within [employer], but was unsuccessful and left a message on the answering machine. Recommendations: 1. I will attempt to contact the patient again either tonight or tomorrow about leaving against medical advice in the urgency for evaluation and ERCP to remove an obstructing biliary stone. If at all possible, the patient could follow up in the GI Clinic early this next week with ERCP expedited at that point. 2. We would continue the patient on broad-spectrum antibiotics and given the presence of choledocholithiasis. Pancreatic cysts. The patient is presenting with MRCP showing the presence of multiple pancreatic cysts both within the body and a larger cyst within the tail of the pancreas. When compared to imaging on a CT in 2015, these have increased in size. All the cysts do have a communication with the main pancreatic duct and could be consistent with a mucinous cystic neoplasm, IPMN, or pseudocysts (less likely). Recommendations: 1. We would obtain a repeat MRI of the pancreas using pancreatic protocol in 6 months to evaluate for stability of these lesions. If any of these lesions are greater than 3 cm in size at that point, I would recommend endoscopic ultrasound with fine-needle aspiration of that cyst given concern for possible malignancy. We will sign off at this time. Please call with any additional questions. Job ID: [id number]
--- NOTE | 2018-07-04 07:37 | PQF ---
MELIDA LEON, DILIP SILVA MD [id number] [id number] CLINICAL DOCUMENTATION CLARIFICATION FORM: POST DISCHARGE DATE: 07/04/2018 ATTN: Dr. Encarnacion Please exercise your independent, professional judgment in responding to the clarification form. Clinical indicators are provided on the bottom of this form for your review Please check appropriate box(s): HEART FAILURE: A. TYPE: [ ] Systolic / HFrEF [ ] Diastolic / HFpEF [ ] Combined Systolic / Diastolic B. ACUITY [ ] Acute [ ] Acute on Chronic [ x ] Chronic [ ] Other diagnosis (please specify) [ ] Unable to determine In addition, please specify: Present on Admission (POA): [ x] Yes [ ] No [ ] Unable to determine For continuity of documentation, please document condition throughout progress notes and discharge summary. Thank You. CLINICAL INDICATORS - SIGNS / SYMPTOMS / LABS Ejection Fraction =20 to 25% Elevated BNP 142. CXR results--Concerning for mild focal patchy densities at lower left lung. This could related to superimposition of hilar vasculature,. Alternatively, a small focus of pneumonia or edema. Enlarged cardial silhouette. Per H&P: CHF, unknown type or cause. Congestive heart failure. The patient does not appear to be in acute exacerbation. We will continue home Lasix once it has been verified. . Per consultation Dr. French: Systolic dysfunction, EF at 35% in the last echo. Echocardiogram showed an EF of 20% to 25% with grade 1 to 3 diastolic dysfunction. RISKS: Hypertension Smoker. TREATMENTS: Continue home Lasix 20 mg po as directed (patient left AMA). (This form is maintained as a part of the permanent medical record) 2014 [employer]. All Rights Reserved Kemi [email or web address] [phone] [email or web address]
== END 2018-06-30 17:40 | disposition left against medical advice (07) | DRG 439 ==
LOC: SCSER 15:50 → 2SW 19:18 → OBSVTOIN 06-29 18:52 → 2NO 06-29 20:46
PROVIDERS: ADMIT Emergency Medicine; ATTEND Emergency Medicine
DX: K85.10 Biliary acute pancreatitis without necrosis or infection (principal); E87.1 Hypo-osmolality and hyponatremia; K86.2 Cyst of pancreas; K80.70 Calculus of gallbladder and bile duct without cholecystitis without obstruction; I10 Essential (primary) hypertension; I50.9 Heart failure, unspecified; E11.9 Type 2 diabetes mellitus without complications; I25.10 Atherosclerotic heart disease of native coronary artery without angina pectoris; F17.210 Nicotine dependence, cigarettes, uncomplicated; I25.5 Ischemic cardiomyopathy; Z66 Do not resuscitate; T50.1X5A Adverse effect of loop [high-ceiling] diuretics, initial encounter; Z79.82 Long term (current) use of aspirin; Z79.4 Long term (current) use of insulin; Z79.899 Other long term (current) drug therapy; Z95.5 Presence of coronary angioplasty implant and graft
CPT/HCPCS: 36415; 36416; 71046; 71250; 74181; 80048; 80053; 80061; 80074; 80076; 81003; 82248; 82553; 83605; 83690; 83880; 84484; 85025; 87040; 87070; 87205; 87804; 93005; 93306; 96361; 96365; 96367; J0456; J0696; J1644; J1825; J2543; J3370; J7050

== ENCOUNTER 2021-01-15 10:59 | Outpatient (CLI) | payer MEDICARE | END 2021-01-15 11:00 | disposition home or self-care (01) | LOC: CT 10:59 | PROVIDERS: ATTEND Physician Assistant Medical | DX: R42 Dizziness and giddiness (principal); Z96.1 Presence of intraocular lens | CPT/HCPCS: 70450 ==

== ENCOUNTER 2022-04-27 14:15 | Observation (INO) | payer MEDICARE, OTHER ==
[2022-04-27] MEDS ORDERED: Aspirin Chewable 81 MG TAB ONE (14:32)
[2022-04-27 15:03] LABS: #Eosinphils 0.1 thou/uL (0.0-0.7); #Lymphocytes 1.4 thou/uL (1.20-3.40); #Monocytes 0.7 thou/uL (0.11-0.59); #Neutrophils 2.4 thou/uL (1.40-6.50); %Basophils 0.9 % (0.0-1.0); %Eosinophils 1.3 % (0.0-10.0); %Lymphocytes 30.3 % (21.0-51.0); %Monocytes 14.4 % (0.0-10.0); Hemoglobin 10.6 g/dL (14.0-18.0); Mean Corpuscular HGB CONC 34.7 g/dL (32.0-36.0); Mean Corpuscular Hemoglobin 36.8 pg (27.0-31.0); Mean Platelet Volume 7.9 fL (7.4-10.4); Platelet Count 275 10x3/uL (130-400); RBC Distribution Width 21.8 % (11.5-14.5); Red Blood Cell (RBC) Count 2.87 mill/uL (4.70-6.10); White Blood Cell (WBC) Count 4.5 10x3/uL (4.8-10.8)
[2022-04-27 15:21] LABS: ALT (SGPT) 15 U/L (8-55); AST (SGOT) 21 U/L (5-34); Albumin 3.4 g/dL (3.4-4.8); Alkaline Phosphatase 58 U/L (40-110); Anion Gap 9 mmol/L (10-20); BUN (Urea Nitrogen) 15 mg/dL (8.4-25.7); Bilirubin, Total 1.9 mg/dL (0.2-1.2); Calc. Creatinine Clearance 0 mL/min (70-130); Calcium 8.4 mg/dL (7.8-10.44); Carbon Dioxide 30 mmol/L (23-31); Chloride 103 mmol/L (98-107); Estimated GFR 88; Globulin 2.1 g/dL (2.4-3.5); Glucose 99 mg/dL (83-110); Lipase 11 U/L (8-78); Potassium 4.4 mmol/L (3.5-5.1); Protein, Total 5.5 g/dL (5.8-8.1); Sodium 138 mmol/L (136-145)
[2022-04-27] MEDS ORDERED: Nitroglycerin 0.4 MG TAB (25 Tab Bottle) SL PRN (16:22)
[2022-04-27] MEDS ORDERED: Nicotine 14 MG PATCH TD PRN (18:27)
[2022-04-27] MEDS ORDERED: Acetaminophen 325 MG TAB PO PRN (18:27)
[2022-04-27] MEDS ORDERED: Electrolyte Replacement Protocol 1 EACH FS SCH (18:30)
[2022-04-27] MEDS ORDERED: Communication Order-Pharmacy FS SCH (18:30)
[2022-04-27] MEDS ORDERED: Dextrose 5% in Water 1,000 ML IV PRN (18:31)
[2022-04-27] MEDS ORDERED: Dextrose 50% Abboject 50 ML SYRINGE SLOW IVP PRN (18:31)
[2022-04-27] MEDS ORDERED: HumaLOG 300 UNITS/3 ML VIAL SC PRN ×2 (18:31)
[2022-04-27] MEDS ORDERED: Albuterol Sulfate 2.5 mg/3 ml Neb NEB PRN (18:36)
[2022-04-27 18:40] LABS: Troponin I 0.023 ng/mL (< 0.028)
[2022-04-27] MEDS ORDERED: Enoxaparin Sodium 120 MG/0.8 ML SYRINGE SC SCH (20:15)
[2022-04-27 20:22] VITALS: BMI 33.3
[2022-04-27 21:18] LABS: Troponin I 0.024 ng/mL (< 0.028)
[2022-04-27] MEDS: Carvedilol 6.25 MG TAB PO SCH (22:10)
[2022-04-27] MEDS: Atorvastatin Calcium 40 MG TAB PO SCH (22:10)
[2022-04-28 05:47] LABS: Hemoglobin A1c 5.1 % (4.0-6.0)
[2022-04-28 06:10] LABS: Cardiac Risk 3.9 (Less than 4.5); Cholesterol 117 mg/dl (< 200 Desired); HDL Cholesterol 30 mg/dL (>60 Neg Risk); LDL Cholesterol, Calculated 65 mg/dL; Magnesium 1.8 mg/dL (1.6-2.6); Triglycerides 109 mg/dL (Less than 150)
[2022-04-28] MEDS ORDERED: Magnesium 2 GM/50 ML(in water) 2 GM in Premix Bag 1 BAG IVPB SCH (08:00)
[2022-04-28] MEDS ORDERED: Enoxaparin Sodium 40 MG/0.4 ML SYRINGE SC SCH (09:00)
[2022-04-28] MEDS ORDERED: Non-Formulary Item 1 EACH (Atorvastatin Calcium [Atorvastatin Calcium] 80 MG Tablet) PO SCH (09:00)
[2022-04-28] MEDS: Enoxaparin Sodium 120 MG/0.8 ML SYRINGE SC SCH ×2 (10:08→20:57)
[2022-04-28] MEDS: Aspirin 81 mg Enteric Coated Tablet PO SCH (10:09)
[2022-04-28 10:22] LABS: Anion Gap 13 mmol/L (10-20); BUN (Urea Nitrogen) 14 mg/dL (8.4-25.7); Calc. Creatinine Clearance 112 mL/min (70-130); Calcium 8.4 mg/dL (7.8-10.44); Carbon Dioxide 25 mmol/L (23-31); Chloride 104 mmol/L (98-107); Estimated GFR 88; Glucose 111 mg/dL (83-110); Potassium 3.9 mmol/L (3.5-5.1); Sodium 138 mmol/L (136-145)
[2022-04-28] MEDS: Carvedilol 6.25 MG TAB PO SCH (10:22)
[2022-04-28] MEDS: Carvedilol 3.125 MG TAB PO SCH (18:06)
[2022-04-28] MEDS: Atorvastatin Calcium 40 MG TAB PO SCH (20:56)
[2022-04-28] MEDS ORDERED: Folic Acid 1 MG TAB PO SCH (21:00)
[2022-04-28] MEDS ORDERED: Cyanocobalamin (Vitamin B-12) 1,000 MCG TAB PO SCH (21:00)
[2022-04-29 05:12] LABS: Hemoglobin 9.7 g/dL (14.0-18.0); Mean Corpuscular HGB CONC 34.4 g/dL (32.0-36.0); Mean Corpuscular Hemoglobin 36.6 pg (27.0-31.0); Mean Platelet Volume 8.2 fL (7.4-10.4); Platelet Count 230 10x3/uL (130-400); RBC Distribution Width 21.7 % (11.5-14.5); Red Blood Cell (RBC) Count 2.64 mill/uL (4.70-6.10)
[2022-04-29 05:20] LABS: ALT (SGPT) 13 U/L (8-55); AST (SGOT) 17 U/L (5-34); Albumin 3.1 g/dL (3.4-4.8); Alkaline Phosphatase 49 U/L (40-110); Anion Gap 10 mmol/L (10-20); BUN (Urea Nitrogen) 12 mg/dL (8.4-25.7); Bilirubin, Total 1.4 mg/dL (0.2-1.2); Calc. Creatinine Clearance 107 mL/min (70-130); Calcium 8.7 mg/dL (7.8-10.44); Carbon Dioxide 29 mmol/L (23-31); Chloride 104 mmol/L (98-107); Estimated GFR 87; Globulin 2.1 g/dL (2.4-3.5); Glucose 105 mg/dL (83-110); Potassium 4.5 mmol/L (3.5-5.1); Protein, Total 5.2 g/dL (5.8-8.1); Sodium 138 mmol/L (136-145)
[2022-04-29 05:48] LABS: Anisocytosis MODERATE=16-30 cells (100X) (0-5/hpf); Band 5 % (5-11); Lymphocytes 48 % (21-51); MDiff Complete? YES; Macrocytosis MODERATE=16-30 cells (100X) (0-5/hpf); Monocytes 11 % (0-10); Neutrophil 36 % (42-75); Ovalocytes SLIGHT = 2-5 cells (100X) (0-1/hpf); Platelet Morphology Comment Appears Adequate
[2022-04-29] MEDS ORDERED: Icosapent Ethyl 1 GM CAPSULE PO SCH (08:00)
[2022-04-29] MEDS: Aspirin 81 mg Enteric Coated Tablet PO SCH (08:27)
[2022-04-29] MEDS: Enoxaparin Sodium 120 MG/0.8 ML SYRINGE SC SCH (08:28)
[2022-04-29] MEDS: Carvedilol 3.125 MG TAB PO SCH (08:30)
[2022-04-29] MEDS ORDERED: Empagliflozin 10 MG TAB PO SCH (09:00)
[2022-04-29 11:52] VITALS: TEMP 97.3
[2022-04-29 12:12] VITALS: BP 97/59
[2022-04-29] MEDS ORDERED: Apixaban 5 MG TAB PO SCH (21:00)
== END 2022-04-29 12:20 | disposition home or self-care (01) ==
LOC: ERS 14:15 → ERHOLD 17:15 → 2SW 22:01
PROVIDERS: ADMIT Internal Medicine; ATTEND Internal Medicine
DX: I48.19 Other persistent atrial fibrillation (principal); I25.110 Atherosclerotic heart disease of native coronary artery with unstable angina pectoris; I13.0 Hypertensive heart and chronic kidney disease with heart failure and stage 1 through stage 4 chronic kidney disease, or unspecified chronic kidney disease; E11.22 Type 2 diabetes mellitus with diabetic chronic kidney disease; N18.2 Chronic kidney disease, stage 2 (mild); I50.22 Chronic systolic (congestive) heart failure; D63.1 Anemia in chronic kidney disease; J44.9 Chronic obstructive pulmonary disease, unspecified; E80.6 Other disorders of bilirubin metabolism; E78.5 Hyperlipidemia, unspecified; I08.8 Other rheumatic multiple valve diseases; F17.210 Nicotine dependence, cigarettes, uncomplicated; I25.5 Ischemic cardiomyopathy; I47.20 Ventricular tachycardia, unspecified; Z91.14 Patient's other noncompliance with medication regimen; Z79.899 Other long term (current) drug therapy; Z95.5 Presence of coronary angioplasty implant and graft; Z20.822 Contact with and (suspected) exposure to COVID-19
CPT/HCPCS: 71045; 80048; 80053 ×2; 80061; 82962 ×2; 83036; 83690; 83735; 83880; 84443; 84484 ×2; 85025 ×2; 85379; 93005; 93306; 93798; 94760; 99285; U0003; U0005; 36415; 36416; 96372; 96374; G0378; J1650; J3475

== ENCOUNTER 2022-10-18 12:08 | Emergency (ER) | payer OTHER ==
[~2022-10-18 12:08] MED LIST: Iopamidol-370 76% 500 ML MDV (1 ML CHARGE) ONE
[2022-10-18 12:44] LABS: #Eosinphils 0.1 thou/uL (0.0-0.7); #Neutrophils 3.4 thou/uL (1.40-6.50); %Basophils 0.2 % (0.0-1.0); %Eosinophils 2.5 % (0.0-10.0); %Lymphocytes 14.2 % (21.0-51.0); %Monocytes 18.1 % (0.0-10.0); %Neutrophils 64.8 % (42.0-75.0); Hemoglobin 10.2 g/dL (14.0-18.0); Mean Corpuscular HGB CONC 32.2 g/dL (32.0-36.0); Mean Corpuscular Hemoglobin 34.9 pg (27.0-31.0); Mean Corpuscular Volume 108.6 fl (78.0-98.0); Mean Platelet Volume 10.4 fL (7.4-10.4); Platelet Count 245 10x3/uL (130-400); RBC Distribution Width 24.2 % (11.5-14.5); Red Blood Cell (RBC) Count 2.92 mill/uL (4.70-6.10); White Blood Cell (WBC) Count 5.3 10x3/uL (4.8-10.8)
[2022-10-18 13:02] LABS: ALT (SGPT) 20 U/L (8-55); AST (SGOT) 27 U/L (5-34); Albumin 3.8 g/dL (3.4-4.8); Alkaline Phosphatase 67 U/L (40-110); Anion Gap 9 mmol/L (10-20); BUN (Urea Nitrogen) 25 mg/dL (8.4-25.7); Bilirubin, Total 1.4 mg/dL (0.2-1.2); CK (CPK) 238 U/L (30-200); Calc. Creatinine Clearance 0 mL/min (70-130); Calcium 8.7 mg/dL (7.8-10.44); Carbon Dioxide 26 mmol/L (23-31); Chloride 108 mmol/L (98-107); Estimated GFR 86; Globulin 2.2 g/dL (2.4-3.5); Glucose 84 mg/dL (83-110); Potassium 4.4 mmol/L (3.5-5.1); Sodium 139 mmol/L (136-145)
[2022-10-18 13:20] LABS: Anisocytosis MODERATE=16-30 cells HPF (0-5); CellaVision Operator ID LAB.MJL; Macrocytosis SLIGHT = 6-15 cells HPF (0-5); Ovalocytes SLIGHT = 2-5 cells HPF (0-1); Platelet Adequacy Comment Platelets Normal; Polychromasia MODERATE = 3-4 cells HPF (0-2)
[2022-10-18] MEDS ORDERED: cefTRIAXone (ROCEPHIN) 2 GM VIAL ONE (15:13)
[2022-10-18] MEDS ORDERED: methylPREDNISolone Sod Succ/PF 125 MG/2 ML VIAL ONE (15:13)
[2022-10-18] MEDS ORDERED: Benzonatate 100 MG CAP ONE (15:13)
[2022-10-18] MEDS ORDERED: Azithromycin 500 MG VIAL ONE (15:13)
[2022-10-18] MEDS ORDERED: Albuterol 200 PUFF INH ONE (15:20)
== END 2022-10-18 17:07 | disposition home or self-care (01) ==
LOC: ERS 12:08
DX: U07.1 COVID-19 (principal); J44.1 Chronic obstructive pulmonary disease with (acute) exacerbation; E11.9 Type 2 diabetes mellitus without complications; E78.5 Hyperlipidemia, unspecified; I10 Essential (primary) hypertension; F17.210 Nicotine dependence, cigarettes, uncomplicated; Z79.899 Other long term (current) drug therapy
CPT/HCPCS: 71045; 71275; 80053; 82550; 84484; 85025; 93005; 94760; J0456; 36415; J0696; J2930

== ENCOUNTER 2022-10-19 21:07 | Inpatient (IN) | payer OTHER ==
[2022-10-19 22:07] LABS: #Monocytes 0.4 thou/uL (0.11-0.59); #Neutrophils 3.9 thou/uL (1.40-6.50); %Lymphocytes 9.4 % (21.0-51.0); %Monocytes 7.9 % (0.0-10.0); %Neutrophils 82.3 % (42.0-75.0); Hemoglobin 9.1 g/dL (14.0-18.0); Mean Corpuscular HGB CONC 32.5 g/dL (32.0-36.0); Mean Corpuscular Hemoglobin 34.9 pg (27.0-31.0); Mean Platelet Volume 10.8 fL (7.4-10.4); Platelet Count 231 10x3/uL (130-400); RBC Distribution Width 24.3 % (11.5-14.5); Red Blood Cell (RBC) Count 2.61 mill/uL (4.70-6.10); White Blood Cell (WBC) Count 4.7 10x3/uL (4.8-10.8)
[2022-10-19] MEDS ORDERED: Magnesium 2 GM/50 ML BAG (IN WATER) ONE (22:08)
[2022-10-19] MEDS ORDERED: Ipratropium/Albuterol 3 ML NEB ONE (22:08)
[2022-10-19 22:12] LABS: Mean Corpuscular Volume 107.3 fl (78.0-98.0)
[2022-10-19 22:21] LABS: CRP (Inflammatory) 0.88 mg/dL (= or < 0.5); INR-International Normal Ratio 1.6; PTT 35.3 sec (22.9-36.1)
[2022-10-19 22:28] LABS: ALT (SGPT) 21 U/L (8-55); AST (SGOT) 36 U/L (5-34); Albumin 3.6 g/dL (3.4-4.8); Alkaline Phosphatase 56 U/L (40-110); Anion Gap 11 mmol/L (10-20); BUN (Urea Nitrogen) 39 mg/dL (8.4-25.7); Calc. Creatinine Clearance 0 mL/min (70-130); Calcium 8.7 mg/dL (7.8-10.44); Carbon Dioxide 25 mmol/L (23-31); Chloride 104 mmol/L (98-107); Estimated GFR 70; Globulin 2.4 g/dL (2.4-3.5); Glucose 156 mg/dL (83-110); Potassium 4.4 mmol/L (3.5-5.1); Sodium 136 mmol/L (136-145)
[2022-10-19] MEDS ORDERED: methylPREDNISolone Sod Succ/PF 125 MG/2 ML VIAL ONE (22:44)
[2022-10-19] MEDS ORDERED: Acetaminophen 325 MG TAB PO PRN (23:00)
[2022-10-19] MEDS ORDERED: Ondansetron PF 4 MG/2 ML Vial IVP PRN (23:00)
[2022-10-19] MEDS ORDERED: Glucagon 1 MG/ML KIT IM PRN (23:01)
[2022-10-19] MEDS ORDERED: Dextrose 5% in Water 1,000 ML IV PRN (23:01)
[2022-10-19] MEDS ORDERED: Dextrose 50% Abboject 50 ML SYRINGE SLOW IVP PRN (23:01)
[2022-10-19] MEDS ORDERED: HumaLOG 300 UNITS/3 ML VIAL SC PRN (23:01)
[2022-10-19] MEDS ORDERED: cefTRIAXone\\ROCEPHIN 1 GM in Sodium Chloride 0.9% 100 ML IVPB SCH (23:59)
[2022-10-20 00:23] LABS: SARS-CoV-2 NAA Rapid Test Not Detected (NotDetected)
[2022-10-20 01:38] VITALS: BMI 32.1
[2022-10-20] MEDS: Ipratropium/Albuterol 3 ML NEB NEB SCH ×6 (01:58→21:53)
[2022-10-20 04:13] LABS: #Monocytes 0.2 thou/uL (0.11-0.59); #Neutrophils 2.9 thou/uL (1.40-6.50); %Monocytes 6.3 % (0.0-10.0); %Neutrophils 81.1 % (42.0-75.0); Hemoglobin 9.3 g/dL (14.0-18.0); Mean Corpuscular HGB CONC 32.1 g/dL (32.0-36.0); Mean Corpuscular Hemoglobin 35.2 pg (27.0-31.0); Mean Platelet Volume 10.4 fL (7.4-10.4); Platelet Count 218 10x3/uL (130-400); Red Blood Cell (RBC) Count 2.64 mill/uL (4.70-6.10); White Blood Cell (WBC) Count 3.5 10x3/uL (4.8-10.8)
[2022-10-20 04:24] LABS: Mean Corpuscular Volume 109.8 fl (78.0-98.0)
[2022-10-20 04:25] LABS: RBC Distribution Width 24.5 % (11.5-14.5)
[2022-10-20 04:39] LABS: Anion Gap 10 mmol/L (10-20); BUN (Urea Nitrogen) 36 mg/dL (8.4-25.7); Calc. Creatinine Clearance 85 mL/min (70-130); Calcium 8.7 mg/dL (7.8-10.44); Carbon Dioxide 25 mmol/L (23-31); Chloride 103 mmol/L (98-107); Estimated GFR 75; Glucose 214 mg/dL (83-110); Magnesium 2.3 mg/dL (1.6-2.6); Potassium 4.4 mmol/L (3.5-5.1); Sodium 134 mmol/L (136-145)
[2022-10-20] MEDS: methylPREDNISolone Sod Succ 40 MG VIAL IVP SCH ×4 (04:48→23:51)
[2022-10-20] MEDS: HumaLOG 300 UNITS/3 ML VIAL SC PRN ×3 (05:24→17:49)
[2022-10-20] MEDS: Apixaban 5 MG TAB PO SCH ×2 (08:39→21:47)
[2022-10-20] MEDS: Aspirin 81 mg Enteric Coated Tablet PO SCH (08:39)
[2022-10-20] MEDS: Sacubitril 49 MG/Valsartan 51 MG TABLET PO SCH (08:39)
[2022-10-20] MEDS: Atorvastatin Calcium 40 MG TAB PO SCH (08:39)
[2022-10-20] MEDS: Icosapent Ethyl 1 GM CAPSULE PO SCH ×2 (08:39→21:46)
[2022-10-20] MEDS: Ferrous Sulfate 325 MG TAB PO SCH ×2 (08:39→21:47)
[2022-10-20] MEDS: Folic Acid 1 MG TAB PO SCH (08:39)
[2022-10-20] MEDS: Empagliflozin 10 MG TAB PO SCH (08:39)
[2022-10-20] MEDS ORDERED: Insulin Glargine 30 UNITS/0.3 ML VIAL SC SCH ×2 (09:00→21:00)
[2022-10-20] MEDS ORDERED: Furosemide 40 MG/4 ML VIAL SLOW IVP SCH (14:00)
[2022-10-20] MEDS: Carvedilol 6.25 MG TAB PO SCH (21:46)
[2022-10-20] MEDS: Insulin Glargine 30 UNITS/0.3 ML VIAL SC SCH (21:47)
[2022-10-21] MEDS: Ipratropium/Albuterol 3 ML NEB NEB SCH ×6 (02:37→22:50)
[2022-10-21 06:08] LABS: #Monocytes 0.6 thou/uL (0.11-0.59); #Neutrophils 4.3 thou/uL (1.40-6.50); %Basophils 0.2 % (0.0-1.0); %Lymphocytes 11.4 % (21.0-51.0); %Monocytes 10.3 % (0.0-10.0); %Neutrophils 77.9 % (42.0-75.0); Hemoglobin 8.9 g/dL (14.0-18.0); Mean Corpuscular HGB CONC 32.4 g/dL (32.0-36.0); Mean Corpuscular Hemoglobin 34.5 pg (27.0-31.0); Mean Corpuscular Volume 106.6 fl (78.0-98.0); Mean Platelet Volume 10.1 fL (7.4-10.4); Platelet Count 226 10x3/uL (130-400); RBC Distribution Width 23.7 % (11.5-14.5); Red Blood Cell (RBC) Count 2.58 mill/uL (4.70-6.10); White Blood Cell (WBC) Count 5.5 10x3/uL (4.8-10.8)
[2022-10-21] MEDS: methylPREDNISolone Sod Succ 40 MG VIAL IVP SCH ×3 (06:25→17:49)
[2022-10-21 06:40] LABS: Anion Gap 8 mmol/L (10-20); BUN (Urea Nitrogen) 35 mg/dL (8.4-25.7); Calc. Creatinine Clearance 94 mL/min (70-130); Carbon Dioxide 30 mmol/L (23-31); Chloride 103 mmol/L (98-107); Estimated GFR 85; Glucose 166 mg/dL (83-110); Potassium 4.7 mmol/L (3.5-5.1); Sodium 136 mmol/L (136-145)
[2022-10-21] MEDS: Atorvastatin Calcium 40 MG TAB PO SCH (09:30)
[2022-10-21] MEDS: Aspirin 81 mg Enteric Coated Tablet PO SCH (09:30)
[2022-10-21] MEDS: Empagliflozin 10 MG TAB PO SCH (09:30)
[2022-10-21] MEDS: Folic Acid 1 MG TAB PO SCH (09:30)
[2022-10-21] MEDS: Ferrous Sulfate 325 MG TAB PO SCH ×2 (09:30→20:26)
[2022-10-21] MEDS: Apixaban 5 MG TAB PO SCH ×2 (09:30→20:25)
[2022-10-21] MEDS: Sacubitril 49 MG/Valsartan 51 MG TABLET PO SCH (09:31)
[2022-10-21] MEDS: Icosapent Ethyl 1 GM CAPSULE PO SCH ×2 (09:31→20:27)
[2022-10-21] MEDS: Carvedilol 6.25 MG TAB PO SCH ×2 (09:31→20:25)
[2022-10-21] MEDS: Insulin Glargine 30 UNITS/0.3 ML VIAL SC SCH ×2 (09:32→20:26)
[2022-10-21] MEDS ORDERED: Bisacodyl 10 MG SUPP PR PRN (16:55)
[2022-10-21] MEDS ORDERED: Benzonatate 100 MG CAP PO SCH (17:45)
[2022-10-21] MEDS: HumaLOG 300 UNITS/3 ML VIAL SC PRN (17:55)
[2022-10-21] MEDS: Benzonatate 100 MG CAP PO SCH (20:25)
[2022-10-21] MEDS: guaiFENesin/DM ER PO SCH (20:26)
[2022-10-21] MEDS: Senokot S 8.6-50 MG TAB PO SCH (20:28)
[2022-10-21] MEDS ORDERED: Sacubitril 49 MG/Valsartan 51 MG TABLET PO SCH (21:00)
[2022-10-21] MEDS: Sacubitril 24MG/Valsartan 26 MG TAB PO SCH (21:49)
[2022-10-22] MEDS: methylPREDNISolone Sod Succ 40 MG VIAL IVP SCH ×3 (00:40→12:34)
[2022-10-22] MEDS: Ipratropium/Albuterol 3 ML NEB NEB SCH ×3 (03:06→10:30)
[2022-10-22 05:28] LABS: #Monocytes 0.7 thou/uL (0.11-0.59); #Neutrophils 6.4 thou/uL (1.40-6.50); %Basophils 0.1 % (0.0-1.0); %Lymphocytes 10.4 % (21.0-51.0); %Monocytes 8.7 % (0.0-10.0); %Neutrophils 80.3 % (42.0-75.0); Hemoglobin 9.4 g/dL (14.0-18.0); Mean Corpuscular HGB CONC 32.5 g/dL (32.0-36.0); Mean Corpuscular Hemoglobin 34.7 pg (27.0-31.0); Mean Corpuscular Volume 106.6 fl (78.0-98.0); Mean Platelet Volume 10.6 fL (7.4-10.4); Platelet Count 260 10x3/uL (130-400); RBC Distribution Width 23.7 % (11.5-14.5); Red Blood Cell (RBC) Count 2.71 mill/uL (4.70-6.10); White Blood Cell (WBC) Count 7.9 10x3/uL (4.8-10.8)
[2022-10-22 05:52] LABS: Anion Gap 10 mmol/L (10-20); BUN (Urea Nitrogen) 39 mg/dL (8.4-25.7); Calc. Creatinine Clearance 99 mL/min (70-130); Calcium 9.6 mg/dL (7.8-10.44); Carbon Dioxide 29 mmol/L (23-31); Chloride 103 mmol/L (98-107); Estimated GFR 86; Glucose 159 mg/dL (83-110); Potassium 4.6 mmol/L (3.5-5.1); Sodium 137 mmol/L (136-145)
[2022-10-22 08:02] VITALS: TEMP 98.1
[2022-10-22] MEDS ORDERED: Polyethylene Glycol 3350 17 GM Packet PO SCH (09:00)
[2022-10-22] MEDS: Atorvastatin Calcium 40 MG TAB PO SCH (09:59)
[2022-10-22] MEDS: Aspirin 81 mg Enteric Coated Tablet PO SCH (09:59)
[2022-10-22] MEDS: Senokot S 8.6-50 MG TAB PO SCH (09:59)
[2022-10-22] MEDS: Folic Acid 1 MG TAB PO SCH (09:59)
[2022-10-22] MEDS: Ferrous Sulfate 325 MG TAB PO SCH (10:00)
[2022-10-22] MEDS: Sacubitril 24MG/Valsartan 26 MG TAB PO SCH (10:00)
[2022-10-22] MEDS: guaiFENesin/DM ER PO SCH (10:00)
[2022-10-22] MEDS: Benzonatate 100 MG CAP PO SCH (10:00)
[2022-10-22] MEDS: Carvedilol 6.25 MG TAB PO SCH (10:01)
[2022-10-22] MEDS: Apixaban 5 MG TAB PO SCH (10:02)
[2022-10-22] MEDS: Icosapent Ethyl 1 GM CAPSULE PO SCH (10:02)
[2022-10-22] MEDS: Empagliflozin 10 MG TAB PO SCH (10:02)
[2022-10-22] MEDS: Insulin Glargine 30 UNITS/0.3 ML VIAL SC SCH (10:03)
[2022-10-22 10:11] VITALS: BP 111/71
== END 2022-10-22 13:22 | disposition home or self-care (01) | DRG 189 ==
LOC: ERS 21:07 → 2NO 22:52 → T4-B 10-20 23:16
PROVIDERS: ADMIT Internal Medicine; ATTEND Internal Medicine
DX: J96.01 Acute respiratory failure with hypoxia (principal); I50.22 Chronic systolic (congestive) heart failure; I48.21 Permanent atrial fibrillation; E87.1 Hypo-osmolality and hyponatremia; I13.0 Hypertensive heart and chronic kidney disease with heart failure and stage 1 through stage 4 chronic kidney disease, or unspecified chronic kidney disease; I25.10 Atherosclerotic heart disease of native coronary artery without angina pectoris; E78.5 Hyperlipidemia, unspecified; Z96.651 Presence of right artificial knee joint; F17.210 Nicotine dependence, cigarettes, uncomplicated; J20.5 Acute bronchitis due to respiratory syncytial virus; Z66 Do not resuscitate; R91.1 Solitary pulmonary nodule; Z20.822 Contact with and (suspected) exposure to COVID-19; I25.5 Ischemic cardiomyopathy; D63.1 Anemia in chronic kidney disease; E11.22 Type 2 diabetes mellitus with diabetic chronic kidney disease; N18.2 Chronic kidney disease, stage 2 (mild); Z79.01 Long term (current) use of anticoagulants; Z79.82 Long term (current) use of aspirin; Z79.4 Long term (current) use of insulin; Z79.899 Other long term (current) drug therapy; Z79.51 Long term (current) use of inhaled steroids; Z95.5 Presence of coronary angioplasty implant and graft; Z90.49 Acquired absence of other specified parts of digestive tract; Z98.890 Other specified postprocedural states
CPT/HCPCS: 36415; 36416; 71045; 71275; 80048; 80053; 82550; 83735; 83880; 84484; 85025; 85610; 85730; 86140; 93005; 94640; 94760; 96365; 96367; 96375; J0456; J0696; J1815; J1940; J2920; J2930; J3475; J7620; Q9967

== ENCOUNTER 2025-01-16 08:55 | Inpatient (IN) | payer OTHER ==
[2025-01-16 10:05] LABS: INR-International Normal Ratio 1.4; PTT 39.0 sec (22.9-36.1); Prothrombin Time 17.3 sec (12.0-14.7)
[2025-01-16 10:06] LABS: Digoxin Less than 0.19 ng/mL (0.8-2.0); Hematocrit 30.7 % (42.0-52.0); Hemoglobin 9.1 g/dL (14.0-18.0); Mean Corpuscular Hemoglobin 32.0 pg (27.0-31.0); Mean Corpuscular Volume 108.1 fL (78.0-98.0); Platelet Count 220 10x3/uL (130-400); Red Blood Cell (RBC) Count 2.84 mill/uL (4.70-6.10); White Blood Cell (WBC) Count 5.41 10x3/uL (4.8-10.8)
[2025-01-16 10:07] LABS: ALT (SGPT) 18 U/L (Less than 45); AST (SGOT) 26 U/L (11-34); Albumin 3.3 g/dL (3.1-4.5); Alkaline Phosphatase 68 U/L (40-110); Anion Gap 16 mmol/L (10-20); BUN (Urea Nitrogen) 22 mg/dL (8.4-25.7); Bilirubin, Total 3.8 mg/dL (0.3-1.2); Calc. Creatinine Clearance 0 mL/min (70-130); Calcium 8.7 mg/dL (7.8-10.44); Carbon Dioxide 27 mmol/L (23-31); Globulin 2.3 g/dL (2.4-3.5); Glucose 151 mg/dL (83-110); Magnesium 1.9 mg/dL (1.6-2.6); Potassium 4.6 mmol/L (3.5-5.1); Sodium 138 mmol/L (136-145)
[2025-01-16 10:26] LABS: Chloride 103 mmol/L (98-107)
[2025-01-16 10:34] LABS: Anisocytosis SLIGHT = 6-15 cells HPF (0-5); Macrocytosis SLIGHT = 6-15 cells HPF (0-5); Nucleated RBC (Manual Ct) 3 % (0); Platelet Adequacy Comment Platelets Normal; Polychromasia SLIGHT = 2-3 cells HPF (0-2); Smudge Cells 2.0 %
[2025-01-16] MEDS ORDERED: Digoxin 0.5 MG/2 ML AMP ONE (11:09)
[2025-01-16] MEDS ORDERED: Dextrose 50% Abboject 50 ML SYRINGE SLOW IVP PRN (12:18)
[2025-01-16] MEDS ORDERED: Glucagon 1 MG/ML KIT IM PRN (12:18)
[2025-01-16] MEDS ORDERED: Acetaminophen 325 MG TAB PO PRN (12:18)
[2025-01-16] MEDS ORDERED: Melatonin 3 MG TAB PO PRN (12:18)
[2025-01-16 12:58] LABS: Bacteria/HPF 2+ HPF (None Seen); CAUTI Indications for Culture Dysuria,urgency,freq; Glucose, Urine (Dipstick) Greater than 1000 mg/dL (Negative); Leukocyte 500 Leu/uL (Negative); Protein, Urine (Dipstick) 50 mg/dL (Neg-Trace); Specific Gravity, Urine 1.021 (1.002-1.036); WBC/HPF Greater than 50 HPF (0-3)
[2025-01-16 13:00] LABS: Urine Culture Reflex Yes Yes
[2025-01-16 14:18] VITALS: BMI 31.2
[2025-01-16] MEDS: Famotidine 20 MG TAB PO SCH (21:18)
[2025-01-16] MEDS: Apixaban 5 MG TAB PO SCH (21:18)
[2025-01-17 04:51] LABS: Hematocrit 27.0 % (42.0-52.0); Hemoglobin 8.3 g/dL (14.0-18.0); Mean Corpuscular Hemoglobin 32.5 pg (27.0-31.0); Mean Corpuscular Volume 105.9 fL (78.0-98.0); Platelet Count 214 10x3/uL (130-400); Red Blood Cell (RBC) Count 2.55 mill/uL (4.70-6.10); White Blood Cell (WBC) Count 5.11 10x3/uL (4.8-10.8)
[2025-01-17 05:26] LABS: Macrocytosis SLIGHT = 6-15 cells HPF (0-5); Nucleated RBC (Manual Ct) 4 % (0); Platelet Adequacy Comment Platelets Normal; Poikilocytosis SLIGHT = 6-15 cells HPF (0-5); Smudge Cells 10.5 %
[2025-01-17] MEDS: metFORMIN XR 500 MG ER.TAB PO SCH (08:52)
[2025-01-17] MEDS: Senokot S 8.6-50 MG TAB PO PRN (08:58)
[2025-01-17] MEDS: Metoprolol Succinate XL 25 MG ER.TAB PO SCH ×2 (12:07→20:08)
[2025-01-17] MEDS: Digoxin 0.5 MG/2 ML AMP SLOW IVP SCH ×3 (13:33→20:07)
[2025-01-17] MEDS: Furosemide 40 MG (4 mL) VIAL SLOW IVP SCH (16:12)
[2025-01-18 04:44] LABS: Hematocrit 27.2 % (42.0-52.0); Hemoglobin 8.1 g/dL (14.0-18.0); Mean Corpuscular Hemoglobin 31.9 pg (27.0-31.0); Mean Corpuscular Volume 107.1 fL (78.0-98.0); Platelet Count 225 10x3/uL (130-400); Red Blood Cell (RBC) Count 2.54 mill/uL (4.70-6.10); White Blood Cell (WBC) Count 4.89 10x3/uL (4.8-10.8)
[2025-01-18 05:07] LABS: Anion Gap 10 mmol/L (10-20); BUN (Urea Nitrogen) 27 mg/dL (8.4-25.7); Calc. Creatinine Clearance 97 mL/min (70-130); Calcium 8.2 mg/dL (7.8-10.44); Carbon Dioxide 32 mmol/L (23-31); Chloride 100 mmol/L (98-107); Glucose 87 mg/dL (83-110); Potassium 3.4 mmol/L (3.5-5.1); Sodium 139 mmol/L (136-145)
[2025-01-18 05:15] LABS: Anisocytosis SLIGHT = 6-15 cells HPF (0-5); Macrocytosis SLIGHT = 6-15 cells HPF (0-5); Nucleated RBC (Manual Ct) 3 % (0); Platelet Adequacy Comment Platelets Normal; Polychromasia SLIGHT = 2-3 cells HPF (0-2)
[2025-01-18 07:52] LABS: Digoxin 39.85 ng/mL (0.8-2.0)
[2025-01-18] MEDS: Magnesium 2 GM/50 ML(in water) 2 GM in Premix 1 BAG IVPB SCH (08:53)
[2025-01-18] MEDS ORDERED: Digoxin 0.125 MG TAB PO SCH (09:00)
[2025-01-18] MEDS ORDERED: Metoprolol Succinate XL 25 MG ER.TAB PO SCH (09:00)
[2025-01-18 11:23] LABS: Anion Gap 12 mmol/L (10-20); BUN (Urea Nitrogen) 28 mg/dL (8.4-25.7); Calc. Creatinine Clearance 97 mL/min (70-130); Calcium 8.2 mg/dL (7.8-10.44); Carbon Dioxide 31 mmol/L (23-31); Chloride 98 mmol/L (98-107); Glucose 124 mg/dL (83-110); Potassium 3.7 mmol/L (3.5-5.1); Sodium 137 mmol/L (136-145)
[2025-01-18 11:35] LABS: Digoxin 3.97 ng/mL (0.8-2.0)
[2025-01-19 04:24] LABS: Hematocrit 27.4 % (42.0-52.0); Hemoglobin 8.4 g/dL (14.0-18.0); Mean Corpuscular Hemoglobin 32.3 pg (27.0-31.0); Mean Corpuscular Volume 105.4 fL (78.0-98.0); Platelet Count 242 10x3/uL (130-400); Red Blood Cell (RBC) Count 2.60 mill/uL (4.70-6.10); White Blood Cell (WBC) Count 4.91 10x3/uL (4.8-10.8)
[2025-01-19 04:32] LABS: Anion Gap 13 mmol/L (10-20); BUN (Urea Nitrogen) 24 mg/dL (8.4-25.7); Calc. Creatinine Clearance 104 mL/min (70-130); Calcium 8.4 mg/dL (7.8-10.44); Carbon Dioxide 31 mmol/L (23-31); Chloride 102 mmol/L (98-107); Glucose 110 mg/dL (83-110); Potassium 3.9 mmol/L (3.5-5.1); Sodium 142 mmol/L (136-145)
[2025-01-19 04:50] LABS: Digoxin 0.32 ng/mL (0.8-2.0)
[2025-01-19 05:08] LABS: Macrocytosis SLIGHT = 6-15 cells HPF (0-5); Nucleated RBC (Manual Ct) 2 % (0); Platelet Adequacy Comment Platelets Normal; Poikilocytosis SLIGHT = 6-15 cells HPF (0-5); Smudge Cells 13.7 %
[2025-01-19] MEDS: Furosemide 40 MG TAB PO SCH (10:38)
[2025-01-19] MEDS: Digoxin 0.125 MG TAB PO SCH (16:31)
[2025-01-20 05:00] LABS: Hematocrit 28.9 % (42.0-52.0); Hemoglobin 8.5 g/dL (14.0-18.0); Mean Corpuscular Hemoglobin 31.6 pg (27.0-31.0); Mean Corpuscular Volume 107.4 fL (78.0-98.0); Platelet Count 275 10x3/uL (130-400); Red Blood Cell (RBC) Count 2.69 mill/uL (4.70-6.10); White Blood Cell (WBC) Count 5.55 10x3/uL (4.8-10.8)
[2025-01-20 05:12] LABS: Anion Gap 14 mmol/L (10-20); BUN (Urea Nitrogen) 19 mg/dL (8.4-25.7); Calc. Creatinine Clearance 94 mL/min (70-130); Calcium 8.5 mg/dL (7.8-10.44); Carbon Dioxide 34 mmol/L (23-31); Chloride 98 mmol/L (98-107); Glucose 103 mg/dL (83-110); Potassium 3.6 mmol/L (3.5-5.1); Sodium 142 mmol/L (136-145)
[2025-01-20 05:13] LABS: Digoxin 0.77 ng/mL (0.8-2.0)
[2025-01-20 05:27] LABS: Anisocytosis SLIGHT = 6-15 cells HPF (0-5); Macrocytosis SLIGHT = 6-15 cells HPF (0-5); Nucleated RBC (Manual Ct) 2 % (0); Platelet Adequacy Comment Platelets Normal; Polychromasia SLIGHT = 2-3 cells HPF (0-2)
[2025-01-20] MEDS: Digoxin 0.125 MG TAB PO SCH (08:52)
[2025-01-20 17:31] LABS: Magnesium 1.7 mg/dL (1.6-2.6)
[2025-01-21 05:30] LABS: Anion Gap 14 mmol/L (10-20); BUN (Urea Nitrogen) 18 mg/dL (8.4-25.7); Calc. Creatinine Clearance 103 mL/min (70-130); Calcium 8.6 mg/dL (7.8-10.44); Carbon Dioxide 30 mmol/L (23-31); Chloride 100 mmol/L (98-107); Digoxin 0.78 ng/mL (0.8-2.0); Glucose 110 mg/dL (83-110); Potassium 3.9 mmol/L (3.5-5.1); Sodium 140 mmol/L (136-145)
[2025-01-21] MEDS: Digoxin 0.125 MG TAB PO SCH (10:51)
[2025-01-22 05:03] LABS: #Basophils Less than 0.03 10x3/uL (0.0-0.2); #Eosinophils 0.09 10x3/uL (0.0-0.7); #Monocytes 0.88 10x3/uL (0.11-0.59); #Neutrophils 2.19 10x3/uL (1.40-6.50); %Basophils 0.2 % (0.0-1.0); %Eosinophils 2.0 % (0.0-10.0); %Lymphocytes 29.4 % (21.0-51.0); %Monocytes 19.2 % (0.0-10.0); %Neutrophils 47.7 % (42.0-75.0); Hematocrit 29.8 % (42.0-52.0); Hemoglobin 9.0 g/dL (14.0-18.0); Mean Corpuscular Hemoglobin 32.7 pg (27.0-31.0); Mean Corpuscular Volume 108.4 fL (78.0-98.0); Platelet Count 274 10x3/uL (130-400); Red Blood Cell (RBC) Count 2.75 mill/uL (4.70-6.10); White Blood Cell (WBC) Count 4.59 10x3/uL (4.8-10.8)
[2025-01-22 05:12] LABS: Anion Gap 13 mmol/L (10-20); BUN (Urea Nitrogen) 18 mg/dL (8.4-25.7); Calc. Creatinine Clearance 102 mL/min (70-130); Calcium 8.9 mg/dL (7.8-10.44); Carbon Dioxide 31 mmol/L (23-31); Chloride 102 mmol/L (98-107); Glucose 110 mg/dL (83-110); Potassium 4.1 mmol/L (3.5-5.1); Sodium 142 mmol/L (136-145)
[2025-01-22 05:14] LABS: Digoxin 1.04 ng/mL (0.8-2.0)
[2025-01-22] MEDS: Digoxin 0.125 MG TAB PO SCH (08:37)
[2025-01-23 05:10] LABS: Anion Gap 13 mmol/L (10-20); BUN (Urea Nitrogen) 22 mg/dL (8.4-25.7); Calc. Creatinine Clearance 93 mL/min (70-130); Calcium 8.8 mg/dL (7.8-10.44); Carbon Dioxide 31 mmol/L (23-31); Chloride 101 mmol/L (98-107); Glucose 94 mg/dL (83-110); Potassium 4.2 mmol/L (3.5-5.1); Sodium 141 mmol/L (136-145)
[2025-01-23 15:07] VITALS: BMI 31.2
[2025-01-23 16:04] VITALS: BP 111/59; TEMP 97.6
== END 2025-01-23 19:40 | disposition home health service (06) | DRG 291 ==
LOC: ERS 08:55 → 2NO 13:33
PROVIDERS: ADMIT Internal Medicine; ATTEND Hospitalist
DX: I11.0 Hypertensive heart disease with heart failure (principal); I50.23 Acute on chronic systolic (congestive) heart failure; K92.2 Gastrointestinal hemorrhage, unspecified; I48.0 Paroxysmal atrial fibrillation; I25.10 Atherosclerotic heart disease of native coronary artery without angina pectoris; Z66 Do not resuscitate; E78.5 Hyperlipidemia, unspecified; E11.9 Type 2 diabetes mellitus without complications; K59.00 Constipation, unspecified; Z98.890 Other specified postprocedural states; Z87.891 Personal history of nicotine dependence; D64.9 Anemia, unspecified; I25.5 Ischemic cardiomyopathy; E87.6 Hypokalemia; Z79.899 Other long term (current) drug therapy
CPT/HCPCS: 36415; 36416; 71045; 80048; 80053; 80162; 81001; 83735; 84484; 85025; 85610; 85730; 87086; 93005; 93798; 96374; J1160; J1815; J1940; J3475; J7030